=== PATIENT | male | born 1990 | race Caucasian/White ===

== ENCOUNTER 2016-07-19 02:01 | Emergency (ER) | payer OTHER ==
[2016-07-19] MEDS ORDERED: NALOXONE HCL 0.4 MG/ML INJ ONE (02:18)
--- NOTE | 2016-07-19 03:00 | EDPHY ---
H & P Stated Complaint: OD Time Seen by Provider: 07/19/16 02:15 HPI/ROS: HPI The patient presents after a drug binge, asking us to wash the drugs out of his system. He says he has bipolar disorder and is supposed to be on lithium, however stop taking it because he was gaining weight. He then took Adderall about a week ago and then scraped benzodiazepines because of the effects of Adderall. He has been taking benzodiazepines for the last 1 week illicitly. Then today at about 4:00 a.m. he took Klonopin 10 mg. He then purchased cocaine and heroin and has been using both intravenously over the last 24 hours in addition to more benzodiazepines. He says he did this because he has a problem with addiction. He was not trying to hurt himself. He says he is very stressed out, studying for the [employer], and this may have contributed to his symptoms. He says his mother is on her way out from [place] to see him. He has told her about his current situation. REVIEW OF SYSTEMS Constitutional: No fever, no chills. Eyes: No discharge. ENT: No sore throat. Cardiovascular: No chest pain, no palpitations. Respiratory: No cough, no shortness of breath. Gastrointestinal: No abdominal pain, no vomiting. Genitourinary: No hematuria. Musculoskeletal: No back pain. Skin: No rashes. Neurological: No headache. PMHx: Asperger's, bipolar disorder Soc Hx: Polysubstance abuse PHYSICAL General Appearance: Alert, no distress Eyes: Pupils equal and round no pallor or injection ENT, Mouth: Mucous membranes moist Respiratory: There are no retractions, lungs are clear to auscultation Cardiovascular: Regular rate and rhythm Gastrointestinal: Abdomen is soft and non-tender, no masses, bowel sounds normal Neurological: A&O, moves all extremities Skin: Warm and dry, no rashes Musculoskeletal: Neck is supple non tender Extremities: symmetrical, full range of motion Psychiatric: Patient is oriented X 3, there is no agitation Source: Patient Exam Limitations: No limitations - Personal History Current Tetanus/Diphtheria Vaccine: Unsure Current Tetanus Diphtheria and Acellular Pertussis (TDAP): Unsure - Medical/Surgical History Hx Asthma: No Hx Chronic Respiratory Disease: No Hx Diabetes: No Hx Cardiac Disease: No Hx Renal Disease: No Hx Cirrhosis: No Hx Alcoholism: No Hx HIV/AIDS: No Hx Splenectomy or Spleen Trauma: No Other PMH: substance abuse, R clavicle plate, l4-l5 compression rx - Social History Smoking Status: Current every day smoker Constitutional: Initial Vital Signs Temperature (C) 36.9 C 07/19/16 02:10 Heart Rate 115 H 07/19/16 02:10 Respiratory Rate 14 07/19/16 02:10 Blood Pressure 141/101 H 07/19/16 02:10 O2 Sat (%) 88 L 07/19/16 02:10 O2 Delivery Mode Room Air O2 (L/minute) 2 Allergies/Adverse Reactions: No Known Allergies Allergy (Verified 11/05/15 20:23) Home Medications: Medication Instructions Recorded traZODone 11/05/15 Ambien 07/19/16 Typhoid Vacc,Live,Attenuated 07/19/16 Medical Decision Making ED Course/Re-evaluation: The patient was given IV fluids for volume depletion. He was monitored in the emergency room for several hours until he became more clinically sober. He did have several episodes of vomiting after drinking a large amount of water. He was given antiemetics and when he felt well enough was discharged home. Differential Diagnosis: This is a 26-year-old male with history of Asperger's, bipolar disorder, substance abuse issues who presents after a drug binge, using benzodiazepines, heroin, cocaine. He comes here because he does not want to continue to use drugs. He is currently stable with normal vital signs. - Data Points Medications Given: Discontinued Medications Ondansetron HCl (Zofran) 4 mg IVP EDNOW ONE Stop: 07/19/16 03:08 Last Admin: 07/19/16 03:07 Dose: 4 mg Ondansetron HCl (Zofran) 4 mg IVP EDNOW ONE Stop: 07/19/16 06:11 Last Admin: 07/19/16 06:15 Dose: 4 mg Promethazine HCl (Phenergan Rectal) 25 mg AR EDNOW ONE Stop: 07/19/16 06:31 Last Admin: 07/19/16 06:32 Dose: 25 mg Departure - Departure Disposition: Home, Routine, Self-Care Clinical Impression: Polysubstance abuse Condition: Good Instructions: Polysubstance Abuse (ED) Additional Instructions: Please return to the emergency room if your worse in any way.
[2016-07-19] MEDS ORDERED: ONDANSETRON 4 MG/2 ML VIAL ONE ×2 (03:01→05:59)
[2016-07-19] MEDS ORDERED: ONDANSETRON 4 MG/2 ML VIAL IVP ONE ×2 (03:07→06:10)
[2016-07-19 04:01] VITALS: RESP 16
[2016-07-19] MEDS ORDERED: PROMETHAZINE HCL 25 MG SUPPR PR ONE ×2 (06:30→06:31)
[2016-07-19 06:57] VITALS: BP 123/97; PULSE 96; TEMP 98.2; O2SAT 97
== END 2016-07-19 06:59 | disposition home or self-care (01) ==
DX: F19.10 Other psychoactive substance abuse, uncomplicated (principal); F17.200 Nicotine dependence, unspecified, uncomplicated
CPT/HCPCS: 96374; J2310; J2405

== ENCOUNTER 2016-11-11 20:05 | Emergency (ER) | payer OTHER ==
[2016-11-11] MEDS ORDERED: HALOPERIDOL LACT 5 MG/ML INJ IV ONE (21:03)
[2016-11-11] MEDS ORDERED: LORazepam 2 MG/ML INJ IVP ONE (21:03)
--- NOTE | 2016-11-11 21:08 | EDPHY ---
H & P Stated Complaint: substance abuse stressed he cant sleep Source: Patient Exam Limitations: No limitations - Personal History Current Tetanus/Diphtheria Vaccine: Yes Current Tetanus Diphtheria and Acellular Pertussis (TDAP): Yes - Medical/Surgical History Hx Asthma: No Hx Chronic Respiratory Disease: No Hx Diabetes: No Hx Cardiac Disease: No Hx Renal Disease: No Hx Cirrhosis: No Hx Alcoholism: No Hx HIV/AIDS: No Hx Splenectomy or Spleen Trauma: No Other PMH: substance abuse, R clavicle plate, l4-l5 compression rx - Social History Smoking Status: Current every day smoker Alcohol Use: Heavy Drug Use: Cocaine, Heroin, Marijuana, Other Time Seen by Provider: 11/11/16 20:42 HPI/ROS: CHIEF COMPLAINT: Substance abuse HISTORY OF PRESENT ILLNESS: Patient is a 26-year-old man who comes to the emergency department requesting help with sobriety. 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 He has continued to hallucinate since that time and feels slightly paranoid. He has a history of substance abuse and and in an effort to relieve his symptoms took 6 bars of Xanax and then heroin and attempt to sleep. He was unable to sleep so today he took more Xanax and then cocaine. He states that he has been through 9 rehab programs and that he has been sober for a year and a half but fell off the [facility]. He has a substance abuse counselor here with him who is been in contact with his dad and they are looking at rehabilitation options for him. They are here tonight requesting that we help calm him and hopefully help get him to sleep and sober for until he can be safely taken home or to rehab tomorrow. The patient states that if he goes home nail he will take Xanax and heroin in an attempt to sleep. He denies suicidal ideation. He does take lithium and trazodone regularly. REVIEW OF SYSTEMS: Constitutional: denies: chills, fever, recent illness, recent injury EENTM: denies: blurred vision, double vision, nose congestion Respiratory: denies: cough, shortness of breath Cardiac: denies: chest pain, irregular heart rate, lightheadedness, palpitations Gastrointestinal/Abdominal: denies: abdominal pain, diarrhea, nausea, vomiting, blood streaked stools Genitourinary: denies: dysuria, frequency, hematuria, pain Musculoskeletal: denies: joint pain, muscle pain Skin: denies: lesions, rash, jaundice, bruising Neurological: denies: headache, numbness, paresthesia, tingling, dizziness, weakness Hematologic/Lymphatic: denies: blood clots, easy bleeding, easy bruising Immunologic/allergic: denies: HIV/AIDS, transplant EXAM: GENERAL: Anxious, rapid speech HEAD: Atraumatic, normocephalic. EYES: Pupils equal round and reactive to light, extraocular movements intact, sclera anicteric, conjunctiva are normal. ENT: TMs normal, nares patent, oropharynx clear without exudates. Moist mucous membranes. NECK: Normal range of motion, supple without lymphadenopathy or JVD. LUNGS: Breath sounds clear to auscultation bilaterally and equal. No wheezes rales or rhonchi. HEART: Regular rate and rhythm without murmurs, rubs or gallops. ABDOMEN: Soft, nontender, normoactive bowel sounds. No guarding, no rebound. No masses appreciated. BACK: No CVA tenderness, no spinal tenderness, step-offs or deformities EXTREMITIES: Normal range of motion, no pitting or edema. No clubbing or cyanosis. NEUROLOGICAL: Cranial nerves II through XII grossly intact. Normal speech, normal gait. 5/5 strength, normal movement in all extremities, normal sensation PSYCH: Normal mood, normal affect. SKIN: Warm, dry, normal turgor, no visible rashes or lesions. (Jorge Liu) Constitutional: Initial Vital Signs Temperature (C) 37 C 11/11/16 20:15 Heart Rate 101 H 11/11/16 20:15 Respiratory Rate 16 11/11/16 20:15 Blood Pressure 157/92 H 11/11/16 20:15 O2 Sat (%) 94 11/11/16 20:15 O2 Delivery Mode Room Air Allergies/Adverse Reactions: No Known Allergies Allergy (Verified 11/05/15 20:23) Home Medications: Medication Instructions Recorded traZODone 11/05/15 CLONAZEPAM 11/11/16 [place] Carbonate [[place] 300 mg PO 11/11/16 Carbonate Cap 300 mg (*)] Medical Decision Making ED Course/Re-evaluation: 0704AM: Patient here in emergency room is been monitor all night. Comfortable and sleeping. On re-evaluation this morning is, cooperative. He would like to be discharged. He is not on M1 hold. He is not on the detain her. He is not acutely psychotic. 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 (Christiano Carolina) 10:35 p.m. the patient is sleeping comfortably. Vital signs remained stable. Care transferred to Dr. Christiano Carolina shift change. I suspect the patient will be increasingly sober in the morning and be able to be discharged home to his friends and parents who are arranging rehab. (Jorge Liu) Differential Diagnosis: Partial list of the Differential diagnosis considered include but were not limited to; polysubstance abuse, anxiety, psychosis and although unlikely based on the history and physical exam, I also considered suicidality, infection , head injury. (Jorge Liu) - Data Points Laboratory Results: Laboratory Results 11/11/16 21:30 11/11/16 21:30 Medications Given: Discontinued Medications Haloperidol Lactate (Haldol Injection) 5 mg IV EDNOW ONE Stop: 11/11/16 21:04 Last Admin: 11/11/16 21:25 Dose: 5 mg Sodium Chloride (Ns) 1,000 mls @ 0 mls/hr IV ONCE ONE; Wide Open PRN Reason: Protocol Stop: 11/11/16 21:25 Last Admin: 11/11/16 21:25 Dose: 1,000 mls Sodium Chloride (Ns) 1,000 mls @ 0 mls/hr IV ONCE ONE PRN Reason: Wide Open Stop: 11/12/16 03:47 Last Admin: 11/12/16 04:03 Dose: 1,000 mls Lorazepam (Ativan Injection) 2 mg IVP EDNOW ONE Stop: 11/11/16 21:04 Last Admin: 11/11/16 21:25 Dose: 2 mg Departure - Departure Disposition: Home, Routine, Self-Care Clinical Impression: Polysubstance abuse Condition: Good Instructions: Polysubstance Abuse (ED) Referrals: NONE *PRIMARY CARE P,. [Primary Care Provider] - As per Instructions
[2016-11-11] MEDS ORDERED: NS 1,000 ML IV ONE (21:24)
[2016-11-11 21:43] LABS: % IMMATURE GRANULYOCYTES 0.3 % (0.0-1.1); ABSOLUTE IMMATURE GRANULOCYTES 0.03 10^3/uL (0.00-0.10); ADD DIFF? NO; ADD MORPH? NO; ADD SCAN? NO; ATYPICAL LYMPHOCYTE FLAG 10 (0-99); FRAGMENT RBC FLAG 0 (0-99); HEMATOCRIT 46.4 % (40.0-51.0); HEMOGLOBIN 15.3 g/dL (13.7-17.5); LEFT SHIFT FLG 0 (0-99); LIPEMIA HEMOLYSIS FLAG 80 (0-99); MEAN CELL HEMOGLOBIN 29.1 pg (27.9-34.1); MEAN CELL VOLUME 88.2 fL (81.5-99.8); MEAN PLATELET VOLUME 9.5 fL (8.7-11.7); PLATELET CLUMPS FLAG 20 (0-99); PLATELET COUNT 316 10^3/uL (150-400); RED BLOOD CELL COUNT 5.26 10^6/uL (4.40-6.38); RED CELL DISTRIBUTION WIDTH 12.9 % (11.5-15.2)
[2016-11-11 21:59] LABS: ANION GAP 13 mEq/L (8-16); CALCIUM 10.6 mg/dL (8.5-10.4); CARBON DIOXIDE 25 mEq/l (22-31); CHLORIDE 100 mEq/L (97-110); CREATININE 1.1 mg/dL (0.7-1.3); ETHANOL SERUM < 10 mg/dL (0-10); GLOMERULAR FILTRATION RATE > 60; GLUCOSE 96 mg/dL (70-100); LITHIUM 0.5 mEq/L (0.6-1.2); POTASSIUM 3.9 mEq/L (3.5-5.2); SODIUM 138 mEq/L (134-144)
[2016-11-11 22:07] VITALS: O2SAT 98
[2016-11-12] MEDS ORDERED: NS 1,000 ML IV ONE (03:46)
[2016-11-12 07:19] VITALS: BP 107/75; PULSE 88; RESP 20; TEMP 98.1
== END 2016-11-12 07:02 | disposition home or self-care (01) ==
DX: F19.10 Other psychoactive substance abuse, uncomplicated (principal); F17.200 Nicotine dependence, unspecified, uncomplicated; E86.9 Volume depletion, unspecified
CPT/HCPCS: 80305; 96374; G0480; J2060

== ENCOUNTER 2017-02-27 02:48 | Emergency (ER) | payer OTHER ==
[2017-02-27 02:53] VITALS: RESP 16
--- NOTE | 2017-02-27 03:12 | EDPHY ---
H & P Stated Complaint: lac to right eyebrow HPI/ROS: HPI CHIEF COMPLAINT: Right eyebrow laceration HISTORY OF PRESENT ILLNESS: This patient is a 27-year-old male, he went out drinking this evening and had a rather large amount of alcohol to drink multiple shots he tripped and fell at a local bar striking his head against the ground. Denies LOC. He sustained a right eyebrow laceration and hematoma. Does complain of mild pain here. Denies neck pain chest pain or shortness of breath. No other injuries. He arrives to the emergency room accompanied by his dad. He tells me his tetanus shot is up-to-date however he is slurring his speech and seems intoxicated. He has obvious right eyebrow hematoma with a 3 cm horizontally oriented laceration. Past Medical History: Denies medical history Past Surgical History: Denies surgical history Social History: [employer] student, endorses alcohol this evening. Family History: Noncontributory ROS REVIEW OF SYSTEMS: A comprehensive 10 point review of systems is otherwise negative aside from elements mentioned in the history of present illness. Exam Constitutional triage nursing summary reviewed, vital signs reviewed, awake/ alert. Eyes normal conjunctivae and sclera, EOMI, PERRLA. HENT head/neck: Right eyebrow hematoma, overlying laceration 3 cm horizontal in nature, otherwise no significant head or neck or face trauma on exam moist mucus membranes, no epistaxis, neck supple/ no meningismus, no raccoon eyes. Respiratory clear to auscultation bilaterally, normal breath sounds, no respiratory distress, no wheezing. Cardiovascular rate normal, regular rhythm, no murmur, no edema, distal pulses normal. Gastrointestinal soft, non-tender, no rebound, no guarding, normal bowel sounds, no distension, no pulsatile mass. Genitourinary no CVA tenderness. Musculoskeletal no midline vertebral tenderness, full range of motion, no calf swelling, no tenderness of extremities, no meningismus, good pulses, neurovascularly intact. Skin pink, warm, & dry, no rash, skin atraumatic. Neurologic awake, alert and oriented x 3, AAOx3, moves all 4 extremities equally, motor intact, sensory intact, CN II-XII intact, normal cerebellar, normal vision, normal speech. Psychiatric normal mood/affect. Heme/Lymph/Immune no lymphadenopathy. Differential Diagnosis: Includes but is not limited to in a particular order closed head injury, intracranial bleed, skull fracture, orbital fracture, forehead hematoma, right eyebrow laceration Medical Decision Making: Plan for this patient CT head without contrast, rule out significant intracranial trauma. Re-evaluation: 0324: Patient verbally consents to laceration repair additionally consents for CT scan head without contrast rule out significant intracranial trauma. Laceration Repair Procedure: Verbal Consent was obtained, Under sterile conditions, The patient had lidocaine with epinephrine used approximately 5 ccs to local anesthetize the Right eyebrow 3cm horizontal Laceration. The wound was copiously irrigated with sterile fluid, the wound was explored for foreign bodies there were none visualized, the wound was explored with a sterile glove to the base. There are no deep structures involved, including no arterial injury. THREE interrupted 6.O PROLENE Sutures were placed in this patient's laceration. He had good close approximation of the wound edges. He Tolerated this well. CT scan head without contrast negative for acute traumatic injury no for skull fracture brain bleed. Return precautions discussed with the patient father at bedside. Additionally understands have sutures removed in 7 days. Watch for signs infection keep wound clean dry and protected. Source: Patient - Personal History Current Tetanus/Diphtheria Vaccine: Yes Current Tetanus Diphtheria and Acellular Pertussis (TDAP): Yes - Medical/Surgical History Hx Asthma: No Hx Chronic Respiratory Disease: No Hx Diabetes: No Hx Cardiac Disease: No Hx Renal Disease: No Hx Cirrhosis: No Hx Alcoholism: No Hx HIV/AIDS: No Hx Splenectomy or Spleen Trauma: No Other PMH: substance abuse, R clavicle plate, l4-l5 compression rx - Social History Smoking Status: Current some day smoker Constitutional: Initial Vital Signs Temperature (C) 36.8 C 02/27/17 02:50 Heart Rate 112 H 02/27/17 02:50 Respiratory Rate 16 02/27/17 02:50 Blood Pressure 130/83 H 02/27/17 02:50 O2 Sat (%) 97 02/27/17 02:50 O2 Delivery Mode Room Air Allergies/Adverse Reactions: No Known Allergies Allergy (Verified 02/27/17 02:53) Home Medications: Medication Instructions Recorded traZODone 11/05/15 CLONAZEPAM 11/11/16 [place] Carbonate [[place] 300 mg PO 11/11/16 Carbonate Cap 300 mg (*)] Adderall Xr 20 mg Capsule 02/27/17 Departure - Departure Disposition: Home, Routine, Self-Care Clinical Impression: Eyebrow laceration Qualifiers: Encounter type: initial encounter Laterality: right Qualified Code(s): S01.111A - Laceration without foreign body of right eyelid and periocular area, initial encounter Traumatic hematoma of forehead Qualifiers: Encounter type: initial encounter Qualified Code(s): S00.83XA - Contusion of other part of head, initial encounter Alcohol intoxication Qualifiers: Complication of substance-induced condition: uncomplicated Qualified Code(s): F10.920 - Alcohol use, unspecified with intoxication, uncomplicated Condition: Good Instructions: Care For Your Stitches (ED), Laceration (ED) Additional Instructions: 1. Please have her stitches removed in 7 days. Referrals: NONE *PRIMARY CARE P,. [Primary Care Provider] - As per Instructions
[2017-02-27 04:14] VITALS: BP 126/74; PULSE 70; TEMP 98.1; O2SAT 96
== END 2017-02-27 04:14 | disposition home or self-care (01) ==
PROC: 0HQ1XZZ Repair Face Skin, External Approach (ICD-10-PCS; principal; 2017-02-27)
DX: S01.111A Laceration without foreign body of right eyelid and periocular area, initial encounter (principal); F10.920 Alcohol use, unspecified with intoxication, uncomplicated; F17.200 Nicotine dependence, unspecified, uncomplicated; W01.198A Fall on same level from slipping, tripping and stumbling with subsequent striking against other object, initial encounter; Y99.8 Other external cause status; Y93.89 Activity, other specified

== ENCOUNTER 2017-02-27 10:24 | Emergency (ER) | payer OTHER ==
[2017-02-27 10:31] VITALS: RESP 16
--- NOTE | 2017-02-27 10:48 | EDPHY ---
H & P Stated Complaint: head injury Time Seen by Provider: 02/27/17 10:32 HPI/ROS: CHIEF COMPLAINT: The patient presents to the ED for evaluation of abnormal head CT scan HISTORY OF PRESENT ILLNESS: The patient was seen in the emergency department in the weather observer hours after he experienced a mechanical fall which resulted in facial trauma and a scalp laceration. The patient did have complaints of headache which prompted a noncontrast head CT scan to be performed. It was initially read as showing no evidence of intracranial hemorrhage. Subsequently this morning the patient's CT scan was reread by Radiology as demonstrating a possible small area of intraparenchymal hemorrhage. The patient presents to the ED for evaluation. The patient denies any acute neurologic complaints. He denies any numbness or weakness. The patient does have pain, swelling and ecchymosis over his right orbital rim. REVIEW OF SYSTEMS: A comprehensive 10 point review of systems is otherwise negative aside from elements mentioned in the history of present illness. Source: Patient Exam Limitations: No limitations - Personal History Current Tetanus/Diphtheria Vaccine: Yes Current Tetanus Diphtheria and Acellular Pertussis (TDAP): Yes - Medical/Surgical History Hx Asthma: No Hx Chronic Respiratory Disease: No Hx Diabetes: No Hx Cardiac Disease: No Hx Renal Disease: No Hx Cirrhosis: No Hx Alcoholism: No Hx HIV/AIDS: No Hx Splenectomy or Spleen Trauma: No Other PMH: substance abuse, R clavicle plate, l4-l5 compression rx - Social History Smoking Status: Current some day smoker - Physical Exam Exam: General Appearance: Alert, no distress Head: Soft tissue swelling, ecchymosis and laceration noted over left eyebrow Eyes: Pupils equal, round, reactive ENT, Mouth: No hemotympanum, no oral trauma Neck: Nontender, trachea midline Respiratory: No chest wall tender, subcutaneous air, lungs clear bilaterally Cardiovascular: Regular rate and rhythm Abdomen: Abdomen is soft and nontender, pelvis stable Skin: No lacerations, No abrasion Back: No midline T/L/S pain Extremities: Nontender, full range of motion Neurological: A&Ox3, normal motor function, normal sensory exam Constitutional: Initial Vital Signs Temperature (C) 36.8 C 02/27/17 10:29 Heart Rate 122 H 02/27/17 10:29 Respiratory Rate 16 02/27/17 10:29 Blood Pressure 144/89 H 02/27/17 10:29 O2 Sat (%) 97 02/27/17 10:29 O2 Delivery Mode Room Air Allergies/Adverse Reactions: No Known Allergies Allergy (Verified 02/27/17 10:27) Home Medications: Medication Instructions Recorded [place] Carbonate [Bertram 300 mg PO 11/11/16 Carbonate Cap 300 mg (*)] Adderall Xr 20 mg Capsule 02/27/17 Ativan 02/27/17 Venlafaxine HCl 02/27/17 Medical Decision Making - Diagnostics Imaging Results: Imaging Impressions Head CT 02/27/17 10:32 Impression: Unusual "tubular-shaped" focus of increased attenuation along the posterior right temporal lobe with features favoring a draining peripheral cortical vein (thrombosis of the vein cannot be excluded), with a parenchymal hemorrhage considered less likely. Consider CT or MR venography for additional assessment, as clinically directed. Findings were discussed with Chetan Irby MD at 11:18, on 02/27/2017. He indicated that the trauma was minor, and he will obtain a neurosurgical consultation for a second opinion. If there is further clinical concern regarding the patient's symptoms, MR imaging is suggested, if not otherwise contraindicated. CT venogram: No evidence of intracranial hemorrhage, thrombosis or other abnormality. 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 ED Course/Re-evaluation: The patient presents to the ED after a possible intracranial hemorrhage was identified on a CT scan earlier today. A repeat noncontrast head CT scan was performed which demonstrates no change in the abnormality seen earlier today. The radiologist did raise the possibility of a thrombosis versus hemorrhage versus venous malformation. The case was discussed with Neurosurgery who reviewed the patient's CT scan. A CT venogram was ordered. This study demonstrates a congenital venous malformation without evidence of hemorrhage or thrombus. The patient is well-appearing with a GCS of 15. The patient has been informed of the congenital nature of the CT finding. The patient will be discharged home at this point time. Plan will be for suture removal in 5 days. Differential Diagnosis: Differential diagnosis considered includes intracranial hemorrhage, central vein thrombosis, venous malformation - Data Points Laboratory Results: 02/27/17 11:42 POC Hgb 15.6 gm/dL gm/dL (13.7-17.5) POC Hct 46 % % (40-51) POC Sodium 142 mEq/L mEq/L (134-144) POC Potassium 3.9 mEq/L mEq/L (3.3-5.0) POC Chloride 102 mEq/L mEq/L (97-110) POC BUN 11 mg/dL mg/dL (7-23) POC Creatinine 0.9 mg/dL mg/dL (0.7-1.3) POC Glucose 104 mg/dL H mg/dL (70-100) Point of Care Test Results: 02/27/17 11:42 POC Sodium 142 POC Potassium 3.9 POC Chloride 102 POC BUN 11 POC Creatinine 0.9 POC Glucose 104 H Departure - Departure Disposition: Home, Routine, Self-Care Clinical Impression: Scalp contusion, Facial laceration Condition: Good Instructions: Facial Laceration (ED) Additional Instructions: 1. Your CT scan demonstrates no evidence of intracranial hemorrhage. 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 2. Suture removal in 5 days. 3. Tylenol and ibuprofen as needed for pain.
[2017-02-27 11:44] VITALS: TEMP 97.9
[2017-02-27] MEDS ORDERED: IOPAMIDOL (ISOVUE 370) 100 ML BTL IV ONE (12:03)
[2017-02-27 12:32] VITALS: O2SAT 96
[2017-02-27 12:54] VITALS: BP 131/90; PULSE 78
== END 2017-02-27 13:11 | disposition home or self-care (01) ==
DX: S01.81XD Laceration without foreign body of other part of head, subsequent encounter (principal); F17.200 Nicotine dependence, unspecified, uncomplicated; W18.39XD Other fall on same level, subsequent encounter
CPT/HCPCS: 82947-QW; Q9967